=== PATIENT | female | born 1990 | race Caucasian/White ===

== ENCOUNTER 2016-04-24 17:17 | Emergency (ER) | payer OTHER ==
[2016-04-24] MEDS ORDERED: NS 1,000 ML IV ONE ×2 (17:30→18:48)
--- NOTE | 2016-04-24 17:45 | EDPHY ---
H & P Stated Complaint: Diarrhea for 3 wks HPI/ROS: CHIEF COMPLAINT: Diarrhea HISTORY OF PRESENT ILLNESS: reports over 2 weeks duration of diarrhea. This is sudden onset. Constant duration. Up to 20 episodes per day. Occasionally blood tinged. No emesis but some nausea. Some abdominal pain and cramping at times. No fever or chills. This was preceded by a upper respiratory infection, as it usually does. She has no trauma or injury. No constipation. No abdominal surgeries. She reports a history of chronic Lyme disease. She says that she feels that when she gets a virus, she then gets body aches, chills and then diarrhea. No alleviating factors. Exacerbated by intake by mouth. No other associated complaints or modifying factors. PREVIOUS ABDOMINAL SURGERIES/DIAGNOSES: Chronic diarrhea. No surgeries REVIEW OF SYSTEMS: Ten systems reviewed and are negative unless otherwise noted in the HPI EXAMINATION: General Appearance: Alert, no distress Head: normocephalic, atraumatic Eyes: Pupils equal and round, no conjunctival pallor or injection. EOMs intact ENT, Mouth: Mucous membranes moist. Uvula midline.No erythema or edema. Neck: Normal inspection, supple, non-tender. No meningismus Respiratory: Lungs are clear to auscultation. No wheezing, rhonchi, crackles. Cardiovascular: Regular rate and rhythm . No murmur. Pulses intact distally symmetrically Gastrointestinal: Abdomen is soft. Mild tenderness in the lower quadrants. No point tenderness. No CVA tenderness.No rebound, guarding or tympany. Nonacute abdomen. Back: non-tender, no bony abnormalities Neurological: A&O, nonfocal, Strength is 5/5 in all limbs Skin: Warm and dry, no rash. No petechiae or purpura Extremities: Nontender, no pedal edema Psychiatric: Mood and affect normal DIFFERENTIAL DIAGNOSES: Including but not limited to acute diarrhea, viral diarrhea, bacterial diarrhea , chronic diarrhea, dehydration, weakness, viral illness MDM: 5:44 p.m. reports of nearly 2 weeks of diarrhea. The patient has had this in the past and attributes it to a chronic Lyme disease diagnosis she has received in the past. She has no recent antibiotics. No history of C difficile colitis. She does have some mild lower abdominal pain. We will continue to monitor this and provide IV fluid resuscitation while laboratory studies are pending. She is in no acute distress and does not want any pain medication at this time. 7:20 p.m. I have re-evaluated the patient. Labs reveal mild dehydration but no other significant abnormalities. Mild leukocytosis. No hypokalemia. Vital signs have improved with IV fluid resuscitation. Plan for a 2nd L and will send her stool sample for the GI profile should she be able to provide one. 8:40PM notified by RN that the patient now has a fever. We will administer Tylenol. I have re-evaluated the patient. She Is upset and she is unable to provide a stool sample. We discussed at length, the possibility of treating empirically for bacterial infection versus symptomatic care for the possibility of viral infection. She is also is concerned because she has mostly for [place] in the morning. I discussed that we would likely treat her empirically given her trip and that we could provide a prescription for her to provide a stool sample to the outpatient lab should she be able to do so. She is considering her options at this time we will discuss again. 9:20 p.m. patient is still resting comfortably. She is unable to provide a stool sample at this time. She is eating an attempt to elicit this. 10:00 p.m. patient is asking to be discharged home. She has been unable to provide a stool sample. I did offer further observation with antibiotic coverage, GI pathogen panel and possibly admission should it be necessary. I do feel She is stable for discharge home, but I suspect she has a viral diarrhea less likely bacterial. We did offer empiric coverage and send her home with a prescription for stool studies, and she wants to be discharged home at this time. To be discharged home empiric coverage and instructions to return to ER should her symptoms worsen, she have any persistent fever or other abdominal pain develops. She is comfortable with this plan and wants to be discharged home at this time. I did encourage her to return to the ER should she change her mind. ED Precautions: Worsening pain. Fever. Bloody stools. Bloody emesis. Constipation or diarrhea. SUPERVISION: Patient was evaluated in conjunction with the supervising physician. Please see their note for details. Source: Patient Exam Limitations: No limitations - Personal History LMP (Females 10-55): 8-14 Days Ago Current Tetanus/Diphtheria Vaccine: Unsure Current Tetanus Diphtheria and Acellular Pertussis (TDAP): Unsure - Medical/Surgical History Hx Asthma: No Hx Chronic Respiratory Disease: No Hx Diabetes: No Hx Cardiac Disease: No Hx Renal Disease: No Hx Cirrhosis: No Hx Alcoholism: No Hx HIV/AIDS: No Hx Splenectomy or Spleen Trauma: No Other PMH: anxiety depression - Social History Smoking Status: Never smoked Constitutional: Initial Vital Signs Temperature (C) 99.5 F 04/24/16 17:19 Heart Rate 104 H 04/24/16 17:19 Respiratory Rate 16 04/24/16 17:19 Blood Pressure 118/72 04/24/16 17:19 O2 Sat (%) 97 04/24/16 17:19 O2 Delivery Mode Room Air Allergies/Adverse Reactions: No Known Allergies Allergy (Unverified 11/15/13 02:12) Home Medications: Medication Instructions Recorded Ciprofloxacin [Cipro] 500 mg PO BID #14 tab 04/24/16 metroNIDAZOLE [Flagyl 500 mg (*)] 500 mg PO TID #14 tab 04/24/16 Medical Decision Making - Data Points Laboratory Results: Laboratory Results 04/24/16 17:55 04/24/16 17:55 04/24/16 04/24/16 19:10 17:55 WBC 15.62 H 10^3/uL (3.80-9.50) RBC 4.21 10^6/uL (4.18-5.33) Hgb 13.2 g/dL (12.6-16.3) Hct 38.7 % (38.0-47.0) MCV 91.9 fL (81.5-99.8) MCH 31.4 pg (27.9-34.1) MCHC 34.1 g/dL (32.4-36.7) RDW 13.4 % (11.5-15.2) Plt Count 407 H 10^3/uL (150-400) MPV 9.4 fL (8.7-11.7) Neut % (Auto) 83.8 H % (39.3-74.2) Lymph % (Auto) 7.5 L % (15.0-45.0) Morton % (Auto) 7.5 % (4.5-13.0) Eos % (Auto) 0.3 L % (0.6-7.6) Baso % (Auto) 0.6 % (0.3-1.7) Nucleat RBC Rel Count 0.0 % (0.0-0.2) Absolute Neuts (auto) 13.10 H 10^3/uL (1.70-6.50) Absolute Lymphs (auto) 1.17 10^3/uL (1.00-3.00) Absolute Monos (auto) 1.17 H 10^3/uL (0.30-0.80) Absolute Eos (auto) 0.04 10^3/uL (0.03-0.40) Absolute Basos (auto) 0.09 10^3/uL (0.02-0.10) Absolute Nucleated RBC 0.00 10^3/uL (0-0.01) Immature Gran % 0.3 % (0.0-1.1) Immature Gran # 0.05 10^3/uL (0.00-0.10) VBG Lactic Acid 0.8 mmol/L (0.7-2.1) Sodium 138 mEq/L (134-144) Potassium 4.0 mEq/L (3.5-5.2) Chloride 103 mEq/L (97-110) Carbon Dioxide 23 mEq/l (22-31) Anion Gap 12 mEq/L (8-16) BUN 10 mg/dL (7-23) Creatinine 0.5 L mg/dL (0.6-1.0) Estimated GFR > 60 Glucose 105 H mg/dL (70-100) Calcium 8.8 mg/dL (8.5-10.4) Total Bilirubin 0.7 mg/dL (0.1-1.4) Conjugated Bilirubin 0.3 mg/dL (0.0-0.5) Unconjugated Bilirubin 0.4 mg/dL (0.0-1.1) AST 32 IU/L (14-46) ALT 39 IU/L (9-52) Alkaline Phosphatase 100 IU/L (38-126) Total Protein 7.0 g/dL (6.3-8.2) Albumin 3.6 g/dL (3.5-5.0) Lipase 70.0 IU/L (23-300) Beta HCG, Qual NEGATIVE Urine Color YELLOW Urine Appearance HAZY Urine pH 5.0 (5.0-7.5) Ur Specific Foster 1.025 (1.002-1.030) Urine Protein NEGATIVE (NEGATIVE) Urine Ketones 2+ H (NEGATIVE) Urine Blood NEGATIVE (NEGATIVE) Urine Nitrate NEGATIVE (NEGATIVE) Urine Bilirubin NEGATIVE (NEGATIVE) Urine Urobilinogen NEGATIVE EU (0.2-1.0) Ur Leukocyte Esterase NEGATIVE (NEGATIVE) Ur Culture Indicated? NOT INDICATED (NI) Urine Glucose NEGATIVE (NEGATIVE) Influenza Typ A,B (DFA) NEGATIVE FOR FLU (NEGATIVE) Medications Given: Discontinued Medications Sodium Chloride (Ns) 1,000 mls @ 0 mls/hr IV ONCE ONE PRN Reason: Wide Open Stop: 04/24/16 17:31 Last Admin: 04/24/16 18:10 Dose: 1,000 mls Sodium Chloride (Ns) 1,000 mls @ 0 mls/hr IV ONCE ONE PRN Reason: Wide Open Stop: 04/24/16 18:49 Last Admin: 04/24/16 19:59 Dose: 1,000 mls Departure - Departure Disposition: Home, Routine, Self-Care Clinical Impression: Abdominal pain Qualifiers: Qualifier Code: (R10.9) Unspecified abdominal pain Diarrhea Qualifiers: Qualifier Code: (R19.7) Diarrhea, unspecified Condition: Good Instructions: Dehydration (ED), Acute Diarrhea (ED) Additional Instructions: Follow-up with primary care physician. Return to the ER for worsening pain, bloody stools, fever or inability to keep liquids down by mouth Referrals: Mary Feldman PA [Primary Care Provider] - As per Instructions Stand Alone Forms: Prescriptions: Ciprofloxacin [Cipro] 500 mg PO BID #14 tab metroNIDAZOLE [Flagyl 500 mg (*)] 500 mg PO TID #14 tab
[2016-04-24 18:18] LABS: % IMMATURE GRANULYOCYTES 0.3 % (0.0-1.1); ABSOLUTE IMMATURE GRANULOCYTES 0.05 10^3/uL (0.00-0.10); ADD DIFF? NO; ADD MORPH? NO; ADD SCAN? NO; ATYPICAL LYMPHOCYTE FLAG 50 (0-99); FRAGMENT RBC FLAG 10 (0-99); HEMATOCRIT 38.7 % (38.0-47.0); HEMOGLOBIN 13.2 g/dL (12.6-16.3); LEFT SHIFT FLG 40 (0-99); LIPEMIA HEMOLYSIS FLAG 90 (0-99); MEAN CELL HEMOGLOBIN 31.4 pg (27.9-34.1); MEAN CELL HEMOGLOBIN CONCENTR. 34.1 g/dL (32.4-36.7); MEAN CELL VOLUME 91.9 fL (81.5-99.8); MEAN PLATELET VOLUME 9.4 fL (8.7-11.7); PLATELET CLUMPS FLAG 10 (0-99); PLATELET COUNT 407 10^3/uL (150-400); RED BLOOD CELL COUNT 4.21 10^6/uL (4.18-5.33); RED CELL DISTRIBUTION WIDTH 13.4 % (11.5-15.2)
[2016-04-24 18:33] LABS: ALANINE AMINOTRANSFERASE 39 IU/L (9-52); ALBUMIN 3.6 g/dL (3.5-5.0); ALKALINE PHOSPHATASE 100 IU/L (38-126); ANION GAP 12 mEq/L (8-16); ASPARTATE AMINOTRANSFERASE 32 IU/L (14-46); BILIRUBIN,TOTAL 0.7 mg/dL (0.1-1.4); BILIRUBIN-CONJUGATED 0.3 mg/dL (0.0-0.5); BILIRUBIN-UNCONJUGATED 0.4 mg/dL (0.0-1.1); CALCIUM 8.8 mg/dL (8.5-10.4); CARBON DIOXIDE 23 mEq/l (22-31); CHLORIDE 103 mEq/L (97-110); CREATININE 0.5 mg/dL (0.6-1.0); GLOMERULAR FILTRATION RATE > 60; GLUCOSE 105 mg/dL (70-100); SODIUM 138 mEq/L (134-144)
[2016-04-24 19:29] LABS: COLOR YELLOW; LEUKOCYTE ESTERASE,URINE NEGATIVE (NEGATIVE); NITRITE,URINE NEGATIVE (NEGATIVE)
[2016-04-24 20:34] VITALS: PULSE 104; RESP 16
[2016-04-24] MEDS ORDERED: ACETAMINOPHEN 325 MG TAB PO ONE (20:41)
[2016-04-24] MEDS ORDERED: metroNIDAZOLE 500 MG TAB PO ONE (22:03)
[2016-04-24] MEDS ORDERED: CIPROFLOXACIN 500MG PREPACK#2 BTL TAKEHOME ONE (22:03)
[2016-04-24 22:15] VITALS: BP 108/65; TEMP 98.6; O2SAT 96
== END 2016-04-24 22:24 | disposition home or self-care (01) ==
DX: R19.7 Diarrhea, unspecified (principal); R10.31 Right lower quadrant pain; R10.32 Left lower quadrant pain

== ENCOUNTER 2016-04-30 18:19 | Emergency (ER) | payer OTHER ==
[2016-04-30] MEDS ORDERED: ONDANSETRON 4 MG/2 ML VIAL IVP ONE (20:56)
[2016-04-30] MEDS ORDERED: NS 1,000 ML IV ONE ×2 (20:56→22:24)
[2016-04-30] MEDS ORDERED: HYDROmorphONE/DILAUDID 1 MG/ML SYR IVP ONE (20:56)
[2016-04-30 21:21] LABS: ANION GAP 17 mEq/L (8-16); CALCIUM 9.4 mg/dL (8.5-10.4); CARBON DIOXIDE 24 mEq/l (22-31); CHLORIDE 95 mEq/L (97-110); CREATININE 0.5 mg/dL (0.6-1.0); GLOMERULAR FILTRATION RATE > 60; GLUCOSE 127 mg/dL (70-100); SODIUM 136 mEq/L (134-144)
[2016-04-30 22:29] VITALS: RESP 16
--- NOTE | 2016-04-30 22:45 | EDPHY ---
H & P Time Seen by Provider: 04/30/16 20:55 HPI/ROS: HPI Diarrhea. 25-year-old female by private vehicle. This patient has a history of intermittent chronic diarrhea thought to be secondary to an auto immune disorder associated with chronic lines disease. She was seen in our emergency department on April 24 with complaint of diarrhea ongoing for 2 weeks. Prior to that she reports she had an upper respiratory infection which then she states flared her Lyme disease and then she developed her typical diarrhea. She reports however that her diarrhea last several days to 1 week and then resolves. She reports this time it has been ongoing which is different from her previous episodes. Her stool studies/GI panel from her previous visit to the emergency department on April 24 did not detect any organisms. She was actually prescribed ciprofloxacin as well as metronidazole all to be taken pending positive stool studies. She states that she never filled these prescriptions because of negative results. She describes having associated mid and lower crampy abdominal discomfort. She reports that she has had a decreased appetite and nausea. She reports she had 1 episode of vomiting yesterday after she ate. She reports that she has been able to eat some food today but she feels that she has gotten dehydrated secondary to her multiple episodes of diarrhea. ROS: Constitutional: No fever, no chills. No weakness. Eyes: No discharge. No changes in vision. ENT: No sore throat. No nasal congestion or rhinorrhea. Respiratory: No cough. No shortness of breath. Cardiac: No chest pain, no palpitations. Gastrointestinal: No abdominal pain, no vomiting, no diarrhea. Genitourinary: No hematuria. No dysuria or increased frequency with urination. Musculoskeletal: No back pain. No neck pain. No myalgias or arthralgias. Skin: No rashes. Neurological: No headache. No focal weakness or altered sensation. Past medical history: Is as above. Anxiety, depression. Social history: Lives with a roommate. Nonsmoker. Denies alcohol. Physical Exam: General Appearance: Alert, appears uncomfortable. This patient is responding to questions appropriately and in full sentences. This patient appears generally well-hydrated and well-nourished. Eyes: Pupils equal and round she has bilateral upper and lower lid inflammation and edema with some scant purulent discharge from the lateral canthus. The cornea appear clear. No significant scleral inflammation No lid edema, erythema or injection. Respiratory: There are no retractions, lungs are clear to auscultation with good air movement bilaterally. Cardiovascular: Regular rate and rhythm. No murmur. Gastrointestinal: Abdomen is soft with vague and mild tenderness throughout, no masses, bowel sounds active. No focal tenderness at McBurney's point. No Machado sign. Neurological: Motor sensory function is grossly intact. Cranial nerves are normal. Gait is normal. Skin: Warm and dry, no rashes. Musculoskeletal: Neck is supple and nontender. Extremities are symmetrical. All joints range without pain or impingement. Psychiatric: No agitation. No depression. Database: EKG: Imaging: Procedures: Emergency department course: IV placed. She was placed on a second officer. Vital signs have been reviewed. She is mildly tachycardic and borderline febrile. She was started on IV normal saline with 2 L to be given over the next 1-2 hours. She was initially given 0.25 mg of IV hydromorphone for her abdominal cramping and to slow her diarrhea. She was given 4 mg of IV Zofran. She was started on Polytrim drops for bilateral conjunctivitis. Her previous medical history and results of stool studies were reviewed from April 24. 11:40 p.m., patient sitting upright, talking to her boyfriend was not present in the room. I discussed admission with her for IV hydration and evaluation by hospitalist service. She does not want to do this. She is tolerating oral fluids in the emergency department. She does feel comfortable going home. Her repeat abdominal exam she is soft and nontender on palpation at this time. I discussed gastroenterology follow-up. I also explained that her diarrhea as a likely autoimmune cost. I discussed follow-up with a multimedia instructional designer as well. I will prescribe her a short course of Vicodin for her abdominal cramping and to slow her diarrhea. She reports that this has worked well for her in the past. Her conjunctivitis will be treated with Polytrim as above. Return to emergency department precautions were thoroughly reviewed with her. All of her questions were answered. She was discharged in good condition with her boyfriend. Differential Diagnosis: The differential diagnosis on this patient includes but is not limited to inflammatory bowel disorder, viral versus bacterial enteritis, dehydration. This represents a partial list of diagnoses considered. These considerations are based on history, physical exam, past history, reassessment and diagnostic testing. Smoking Status: Never smoked Constitutional: Initial Vital Signs Temperature (C) 37.2 C 04/30/16 18:40 Heart Rate 101 H 04/30/16 18:40 Respiratory Rate 18 04/30/16 18:40 Blood Pressure 110/72 04/30/16 18:40 O2 Sat (%) 94 04/30/16 18:40 O2 Delivery Mode Room Air Allergies/Adverse Reactions: No Known Allergies Allergy (Verified 04/30/16 18:53) Home Medications: Medication Instructions Recorded Ondansetron Odt [Zofran Odt 4 mg 4 mg PO Q4PRN PRN #10 tab 04/30/16 (*)] Sertraline HCl [Zoloft 25mg (*)] 25 mg PO DAILY 04/30/16 Medical Decision Making - Data Points Laboratory Results: Laboratory Results 04/30/16 21:00 Medications Given: Discontinued Medications Acetaminophen/Hydrocodone Bitart (Bisbee 5/325mg Prepack#6) 1 btl TAKEHOME EDNOW ONE Stop: 04/30/16 23:50 Last Admin: 05/01/16 00:18 Dose: 1 btl Hydromorphone HCl (Dilaudid) 0.25 mg IVP EDNOW ONE Stop: 04/30/16 20:57 Last Admin: 04/30/16 21:00 Dose: 0.25 mg Sodium Chloride (Ns) 1,000 mls @ 0 mls/hr IV ONCE ONE PRN Reason: Wide Open Stop: 04/30/16 20:57 Last Admin: 04/30/16 21:00 Dose: 1,000 mls Sodium Chloride (Ns) 1,000 mls @ 0 mls/hr IV ONCE ONE PRN Reason: Wide Open Stop: 04/30/16 22:25 Last Admin: 04/30/16 22:28 Dose: 1,000 mls Ondansetron HCl (Zofran) 4 mg IVP EDNOW ONE Stop: 04/30/16 20:57 Last Admin: 04/30/16 21:00 Dose: 4 mg Ondansetron HCl (Zofran Odt 4 Mg Prepack#2) 1 btl TAKEHOME EDNOW ONE Stop: 04/30/16 23:50 Last Admin: 05/01/16 00:18 Dose: 1 btl Polymyxin/Trimethoprim Sulfate (Polytrim Opht Drops) 1 drops EACHEYE Q6HRS PO Stop: 05/31/16 00:00 Last Admin: 04/30/16 23:23 Dose: 1 drop Departure - Departure Disposition: Home, Routine, Self-Care Clinical Impression: Diarrhea, Conjunctivitis Condition: Good Instructions: Hydrocodone/Acetaminophen (By mouth), Ondansetron (By mouth), Chronic Diarrhea (ED), Conjunctivitis (ED) Additional Instructions: Read and follow provided instructions. Bisbee/Percocet dosin-2 every 4-6 hours for Diarrhea and abdominal cramping. Do not drive on this medication. Polytrim eyedrops dosin drop each eye every 3 hours while awake for 5-7 days. Follow-up with Gastroenterology, Dr. Mekhi Elkins, or 1 of his partners at [facility] for further evaluation as discussed. I will also provide you with a referral to a multimedia instructional designer. Return to the emergency department for worsening abdominal pain, fever, bloody diarrhea, vomiting and inability to keep fluids down despite medications or other serious concerns. Referrals: Mekhi Elkins MD, FACG [Medical Doctor] - As per Instructions Daniele Garsia MD [Medical Doctor] - As per Instructions Prescriptions: Ondansetron Odt [Zofran Odt 4 mg (*)] 4 mg PO Q4PRN PRN #10 tab PRN Reason: For Nausea & Vomiting
[2016-04-30] MEDS ORDERED: ONDANSETRON 4MG PREPACK#2 BTL TAKEHOME ONE (23:49)
[2016-04-30] MEDS ORDERED: HYDROCOD/APAP 5/325 PREPACK#6 BTL TAKEHOME ONE (23:49)
[2016-05-01] MEDS ORDERED: POLYMYXIN B SULFATE/TMP 10 ML OPHT.BTL EACHEYE SCH
[2016-05-01 00:20] VITALS: BP 107/61; PULSE 88; TEMP 98.1; O2SAT 97
== END 2016-05-01 00:17 | disposition home or self-care (01) ==
DX: R19.7 Diarrhea, unspecified (principal); H10.9 Unspecified conjunctivitis
CPT/HCPCS: 96374; J1170; J2405

== ENCOUNTER 2016-05-07 09:01 | Emergency (ER) | payer OTHER ==
[2016-05-07 09:06] VITALS: RESP 16; O2SAT 94
[2016-05-07] MEDS ORDERED: NS 1,000 ML IV ONE (09:41)
--- NOTE | 2016-05-07 09:44 | EDPHY ---
H & P Smoking Status: Never smoked Time Seen by Provider: 05/07/16 09:19 HPI/ROS: CHIEF COMPLAINT: Diarrhea, weakness HISTORY OF PRESENT ILLNESS: 25-year-old female presents to the emergency department by private vehicle complaining of multiple episodes of watery diarrhea. The patient has also noted blood in her stool intermittently over the last 3 weeks. She feels very weak and dehydrated. The patient has mild abdominal cramping. She feels nauseous although no vomiting. No fevers or chills. She was diagnosed with ulcerative colitis 7 years ago and was started on medication that she took for 1 month. She stop this medication because she did not tolerate it. She also at that time was treated by a homeopathic provider for Lyme disease and feels that she has not had any problems with ulcerative colitis since that treatment. She has not taken any medication for ulcerative colitis until recently went to see [facility] yesterday and was started on a mesalamine yesterday. She took yesterday's dose however she did not take today's. She does not feel that she has infectious diarrhea. She feels that this is likely a flare-up of her ulcerative colitis. She is concerned because she feels very dehydrated and weak. She denies chest pain or difficulty breathing. Denies urinary symptoms. Last menstrual period was 1 month ago and she denies . REVIEW OF SYSTEMS: Constitutional: No fever, no chills. Eyes: No double or blurry vision. ENT: No sore throat. Respiratory: No cough, no shortness of breath. Cardiac: No chest pain. Gastrointestinal: As above. Genitourinary: No dysuria. Musculoskeletal: No neck or back pain. Skin: No rashes. Neurological: No headache. (Azul Diallo) Past Medical/Surgical History: Ulcerative colitis diagnosed 7 years ago (Azul Diallo) Social History: Single (Azul Diallo) Physical Exam: General Appearance: Alert, no distress. Temperature 36.6. Eyes: Pupils equal and round. Extraocular motions are all intact. ENT: Mouth: Mucous membranes moist. Respiratory: No wheezing, rhonchi, or rales, lungs are clear to auscultation. Cardiovascular: Regular rate and rhythm. Gastrointestinal: Abdomen is soft and nontender, no masses, no rebound or guarding, bowel sounds normal. No CVA tenderness bilaterally. Neurological: Alert and oriented x 3, cranial nerves II through XII grossly intact Skin: Warm and dry, no rashes. Musculoskeletal: Nontender to palpate along the cervical, thoracic or lumbar spine. Neck is supple. Extremities: Full range of motion and no peripheral edema. Psychiatric: Patient is oriented X 3, there is no agitation. (Azul Diallo) Constitutional: Initial Vital Signs Temperature (C) 36.6 C 05/07/16 09:02 Heart Rate 96 05/07/16 09:02 Respiratory Rate 16 05/07/16 09:02 Blood Pressure 102/67 05/07/16 09:02 O2 Sat (%) 94 05/07/16 09:02 O2 Delivery Mode Room Air Allergies/Adverse Reactions: No Known Allergies Allergy (Verified 04/30/16 18:53) Home Medications: Medication Instructions Recorded Sertraline HCl [Zoloft 25mg (*)] 25 mg PO DAILY 04/30/16 predniSONE 20 mg PO DAILY #10 tab 05/07/16 Medical Decision Making ED Course/Re-evaluation: 25-year-old female presents to the emergency department with continued bloody diarrhea. Patient was seen by GI yesterday was started on mesalamine. The patient did not take her medication today. Laboratory studies revealed normal CBC and chemistries. She received IV normal saline as well as Dilaudid IV for pain. The patient was observed for over 4 hours in the emergency department and was unable to produce a stool specimen. I spoke with Dr. Sarabjit Sanders with GI who recommended that the patient receive 125 mg of IV Solu-Medrol here and then be sent home with 20 mg prednisone tablet daily and they will see her in follow-up in schedule colonoscopy. The patient verbalized understanding of this and agreed. The father was at bedside was comfortable with this plan. The patient felt comfortable being discharged home. She was given orders for stool culture and will bring the stool specimen back to the hospital as soon as possible. With the patient was here April 24, 2016 with similar bloody diarrhea, her stool culture at that time was negative. She did not take the prescribed Flagyl and Cipro as prescribed. I do not think CT imaging of the abdomen pelvis is necessary. The patient's abdomen is benign. (Azlu Diallo) Differential Diagnosis: Including but not limited to ulcerative colitis, infectious diarrhea, bowel obstruction, acute appendicitis, GI bleed (Azul Diallo) - Data Points Laboratory Results: Laboratory Results 05/07/16 09:18 05/07/16 09:18 05/07/16 09:18 WBC 10.22 H 10^3/uL (3.80-9.50) RBC 4.73 10^6/uL (4.18-5.33) Hgb 14.3 g/dL (12.6-16.3) Hct 43.1 % (38.0-47.0) MCV 91.1 fL (81.5-99.8) MCH 30.2 pg (27.9-34.1) MCHC 33.2 g/dL (32.4-36.7) RDW 13.4 % (11.5-15.2) Plt Count 721 H 10^3/uL (150-400) MPV 8.8 fL (8.7-11.7) Neut % (Auto) 77.5 H % (39.3-74.2) Lymph % (Auto) 12.9 L % (15.0-45.0) Caldwell % (Auto) 5.8 % (4.5-13.0) Eos % (Auto) 2.9 % (0.6-7.6) Baso % (Auto) 0.3 % (0.3-1.7) Nucleat RBC Rel Count 0.0 % (0.0-0.2) Absolute Neuts (auto) 7.92 H 10^3/uL (1.70-6.50) Absolute Lymphs (auto) 1.32 10^3/uL (1.00-3.00) Absolute Monos (auto) 0.59 10^3/uL (0.30-0.80) Absolute Eos (auto) 0.30 10^3/uL (0.03-0.40) Absolute Basos (auto) 0.03 10^3/uL (0.02-0.10) Absolute Nucleated RBC 0.00 10^3/uL (0-0.01) Immature Gran % 0.6 % (0.0-1.1) Immature Gran # 0.06 10^3/uL (0.00-0.10) Sodium 142 mEq/L (134-144) Potassium 4.3 mEq/L (3.5-5.2) Chloride 102 mEq/L (97-110) Carbon Dioxide 24 mEq/l (22-31) Anion Gap 16 mEq/L (8-16) BUN 5 L mg/dL (7-23) Creatinine 0.5 L mg/dL (0.6-1.0) Estimated GFR > 60 Glucose 93 mg/dL (70-100) Calcium 9.4 mg/dL (8.5-10.4) Medications Given: Discontinued Medications Hydromorphone HCl (Dilaudid) 0.5 mg IVP EDNOW ONE Stop: 05/07/16 10:11 Last Admin: 05/07/16 10:17 Dose: 0.5 mg Sodium Chloride (Ns) 1,000 mls @ 0 mls/hr IV ONCE ONE PRN Reason: Wide Open Stop: 05/07/16 09:42 Last Admin: 05/07/16 09:43 Dose: 1,000 mls Methylprednisolone Sodium Succinate (Solu-Medrol) 125 mg IVP EDNOW ONE Stop: 05/07/16 12:45 Last Admin: 05/07/16 12:45 Dose: 125 mg Ondansetron HCl (Zofran) 4 mg IVP EDNOW ONE Stop: 05/07/16 10:46 Last Admin: 05/07/16 10:45 Dose: 4 mg Departure - Departure Disposition: Home, Routine, Self-Care Clinical Impression: Bloody diarrhea, History of ulcerative colitis Fatigue Qualifiers: Fatigue type: unspecified Qualifier Code: (R53.83) Other fatigue Condition: Good Instructions: Chronic Diarrhea (ED), Ulcerative Colitis (ED), Fatigue (ED) Additional Instructions: Continue mesalamine as prescribed. Prednisone 20 mg daily. Your given 125 mg of Solu-Medrol IV in the emergency department. Call Dr. Sarabjit Sanders office tomorrow to arrange follow-up appointment scheduled colonoscopy. Return to the emergency department if you develop fever, worsening abdominal pain, increasing bloody diarrhea, or if you feel worse in any way. Your platelet count today in the emergency department was high, 721. You should follow up with primary care provider to have this rechecked. Referrals: rAeli Bob MD [Medical Doctor] - As per Instructions (Primary care provider at [facility]) Sarabjit Sanders MD [Medical Doctor] - As per Instructions (Call in the morning to arrange follow-up appointment and schedule colonoscopy. Tell them we spoke with Dr. Sanders while you were here in the emergency department.) Prescriptions: predniSONE 20 mg PO DAILY #10 tab
[2016-05-07 09:51] LABS: % IMMATURE GRANULYOCYTES 0.6 % (0.0-1.1); ABSOLUTE IMMATURE GRANULOCYTES 0.06 10^3/uL (0.00-0.10); ADD DIFF? NO; ADD MORPH? NO; ADD SCAN? NO; ATYPICAL LYMPHOCYTE FLAG 80 (0-99); FRAGMENT RBC FLAG 0 (0-99); HEMATOCRIT 43.1 % (38.0-47.0); HEMOGLOBIN 14.3 g/dL (12.6-16.3); LEFT SHIFT FLG 20 (0-99); LIPEMIA HEMOLYSIS FLAG 80 (0-99); MEAN CELL HEMOGLOBIN 30.2 pg (27.9-34.1); MEAN CELL HEMOGLOBIN CONCENTR. 33.2 g/dL (32.4-36.7); MEAN CELL VOLUME 91.1 fL (81.5-99.8); MEAN PLATELET VOLUME 8.8 fL (8.7-11.7); PLATELET CLUMPS FLAG 10 (0-99); PLATELET COUNT 721 10^3/uL (150-400); RED BLOOD CELL COUNT 4.73 10^6/uL (4.18-5.33); RED CELL DISTRIBUTION WIDTH 13.4 % (11.5-15.2)
[2016-05-07 10:02] LABS: ANION GAP 16 mEq/L (8-16); CALCIUM 9.4 mg/dL (8.5-10.4); CARBON DIOXIDE 24 mEq/l (22-31); CHLORIDE 102 mEq/L (97-110); CREATININE 0.5 mg/dL (0.6-1.0); GLOMERULAR FILTRATION RATE > 60; GLUCOSE 93 mg/dL (70-100); POTASSIUM 4.3 mEq/L (3.5-5.2); SODIUM 142 mEq/L (134-144)
[2016-05-07] MEDS ORDERED: HYDROmorphONE/DILAUDID 1 MG/ML SYR ONE (10:05)
[2016-05-07] MEDS ORDERED: HYDROmorphONE/DILAUDID 1 MG/ML SYR IVP ONE (10:10)
[2016-05-07] MEDS ORDERED: ONDANSETRON 4 MG/2 ML VIAL IVP ONE (10:45)
[2016-05-07] MEDS ORDERED: ONDANSETRON 4 MG/2 ML VIAL ONE (10:51)
[2016-05-07] MEDS ORDERED: methylPREDNISolone SOD SUCC 125 MG/2 ML VIAL ONE (12:44)
[2016-05-07] MEDS ORDERED: methylPREDNISolone SOD SUCC 125 MG/2 ML VIAL IVP ONE (12:44)
[2016-05-07 13:26] VITALS: BP 101/67; PULSE 84; TEMP 98.1
== END 2016-05-07 13:25 | disposition home or self-care (01) ==
DX: R19.7 Diarrhea, unspecified (principal)
CPT/HCPCS: 96374; J1170; J2405

== ENCOUNTER 2018-07-10 17:38 | Emergency (ER) | payer OTHER ==
--- NOTE | 2018-07-10 17:48 | EDPHY ---
H & P Stated Complaint: dx ulcerative colitis thursday, dr wants her to have iv prednisone Time Seen by Provider: 07/10/18 17:48 HPI/ROS: HPI CHIEF COMPLAINT: "I want prednisone for my colitis" HISTORY OF PRESENT ILLNESS: Patient is a 27-year-old female, she presents to the emergency room stating that she has colitis, she reports to me that she was diagnosed approximately 3-4 years ago with ulcerative colitis. She just recently had a colonoscopy by Mekhi Vasquez, on Thursday. Diagnosed with colitis. Started on prednisone recommended 60 mg or 30 mg twice daily however the patient has only been taking 30 mg. She presents emergency room requesting she gets an IV dose of steroids. Initially she requested only an IV dose of steroids and no blood work. However she has agreed on blood work, IV Solu-Medrol. She states her symptoms have improved since being on prednisone with less pain, no bloody stools, no vomiting and no fever. Prior to her colonoscopy on Thursday she had nausea vomiting fever. Now improving. According to the colonoscopy report was recommend that she be hospitalized due to colitis and go to the hospital however she declined this. Instead they placed her on prednisone 30 mg twice daily. However the patient has only been taking 30 mg once daily. CRP was 61 at colonoscopy. Past Medical History: Colitis. Patient reports ulcerative colitis Past Surgical History: No recent surgery Social History: Denies drugs alcohol tobacco Family History: Noncontributory ROS REVIEW OF SYSTEMS: 10 Systems were reviewed and negative with the exception of the elements mentioned in the history of present illness. Exam Constitutional triage nursing summary reviewed, vital signs reviewed, awake/ alert. Eyes normal conjunctivae and sclera, EOMI, PERRLA. HENT normal inspection, atraumatic, moist mucus membranes, no epistaxis, neck supple/ no meningismus, no raccoon eyes. Respiratory clear to auscultation bilaterally, normal breath sounds, no respiratory distress, no wheezing. Cardiovascular rate normal, regular rhythm, no murmur, no edema, distal pulses normal. Gastrointestinal soft, non-tender, no rebound, no guarding, normal bowel sounds, no distension, no pulsatile mass. Genitourinary no CVA tenderness. Musculoskeletal no midline vertebral tenderness, full range of motion, no calf swelling, no tenderness of extremities, no meningismus, good pulses, neurovascularly intact. Skin pink, warm, & dry, no rash, skin atraumatic. Neurologic awake, alert and oriented x 3, AAOx3, moves all 4 extremities equally, motor intact, sensory intact, CN II-XII intact, normal cerebellar, normal vision, normal speech. Psychiatric normal mood/affect. Heme/Lymph/Immune no lymphadenopathy. Differential Diagnosis: Differential diagnosis includes but is not limited to and in no particular order: Worsening colitis, Bowel obstruction, appendicitis , gallbladder disease, diverticulitis, enteritis, perforated viscus, gastritis, GERD, esophagitis, urinary tract infection, pyelonephritis, kidney stones Medical Decision Making: Plan for this patient IV establishment IV fluid bolus , IV Solu-Medrol, basic labs, re-evaluate Re-evaluation: 1950: Patient re-evaluated resting comfortably here in no acute distress. Abdomen is soft nontender. The patient is not vomiting. Labs reviewed. Stable from outpatient GI labs. Her CRP is in fact down. She has no fever here, vital signs stable, no bloody diarrhea. She would like to go home. She received IV fluids here, IV Solu-Medrol. I do recommend she follows the GI instructions of Dr. Elkins. Prednisone 30 mg twice daily as a taper. We discussed return precautions return emergency room if worsening abdominal pain, bloody stool, fever, vomiting. Source: Patient - Personal History LMP (Females 10-55): 8-14 Days Ago Current Tetanus/Diphtheria Vaccine: Unsure Current Tetanus Diphtheria and Acellular Pertussis (TDAP): Unsure - Medical/Surgical History Hx Asthma: No Hx Chronic Respiratory Disease: No Hx Diabetes: No Hx Cardiac Disease: No Hx Renal Disease: No Hx Cirrhosis: No Hx Alcoholism: No Hx HIV/AIDS: No Hx Splenectomy or Spleen Trauma: No Other PMH: anxiety depression, ulcerative colitis - Social History Smoking Status: Former smoker Constitutional: Initial Vital Signs Temperature (C) 36.6 C 07/10/18 17:44 Heart Rate 73 07/10/18 17:44 Respiratory Rate 16 07/10/18 17:44 Blood Pressure 109/68 07/10/18 17:44 O2 Sat (%) 95 07/10/18 17:44 O2 Delivery Mode Room Air Allergies/Adverse Reactions: No Known Allergies Allergy (Verified 07/10/18 17:47) Home Medications: Medication Instructions Recorded Sertraline HCl [Zoloft 25mg (*)] 25 mg PO DAILY 04/30/16 predniSONE 20 mg PO DAILY #10 tab 05/07/16 Zofran 07/10/18 Medical Decision Making - Data Points Laboratory Results: Laboratory Results 07/10/18 18:20 07/10/18 18:20 07/10/18 07/10/18 18:20 18:20 WBC 5.49 10^3/uL 10^3/uL (3.80-9.50) RBC 4.00 10^6/uL L 10^6/uL (4.18-5.33) Hgb 10.2 g/dL L g/dL (12.6-16.3) Hct 32.1 % L % (38.0-47.0) MCV 80.3 fL L fL (81.5-99.8) MCH 25.5 pg L pg (27.9-34.1) MCHC 31.8 g/dL L g/dL (32.4-36.7) RDW 14.6 % % (11.5-15.2) Plt Count 654 10^3/uL H 10^3/uL (150-400) MPV 8.2 fL L fL (8.7-11.7) Neut % (Auto) 72.3 % % (39.3-74.2) Lymph % (Auto) 16.4 % % (15.0-45.0) Clay % (Auto) 9.1 % % (4.5-13.0) Eos % (Auto) 0.0 % L % (0.6-7.6) Baso % (Auto) 0.2 % L % (0.3-1.7) Nucleat RBC Rel Count 0.0 % % (0.0-0.2) Absolute Neuts (auto) 3.97 10^3/uL 10^3/uL (1.70-6.50) Absolute Lymphs (auto) 0.90 10^3/uL L 10^3/uL (1.00-3.00) Absolute Monos (auto) 0.50 10^3/uL 10^3/uL (0.30-0.80) Absolute Eos (auto) 0.00 10^3/uL L 10^3/uL (0.03-0.40) Absolute Basos (auto) 0.01 10^3/uL L 10^3/uL (0.02-0.10) Absolute Nucleated RBC 0.00 10^3/uL 10^3/uL (0-0.01) Immature Gran % 2.0 % H % (0.0-1.1) Immature Gran # 0.11 10^3/uL H 10^3/uL (0.00-0.10) ESR 27 MM/HR H MM/HR (0-20) Sodium 138 mEq/L mEq/L (135-145) Potassium 4.3 mEq/L mEq/L (3.5-5.2) Chloride 105 mEq/L mEq/L (97-110) Carbon Dioxide 25 mEq/l mEq/l (22-31) Anion Gap 8 mEq/L mEq/L (6-14) BUN 11 mg/dL mg/dL (7-23) Creatinine 0.5 mg/dL L mg/dL (0.6-1.0) Estimated GFR > 60 Glucose 112 mg/dL H mg/dL (70-100) Calcium 8.7 mg/dL mg/dL (8.5-10.4) C-Reactive Protein 35.0 mg/L H mg/L (<10.0) Medications Given: Discontinued Medications Sodium Chloride (Ns) 1,000 mls @ 0 mls/hr IV EDNOW ONE; Wide Open PRN Reason: Protocol Stop: 07/10/18 18:09 Last Admin: 07/10/18 18:19 Dose: 1,000 mls Methylprednisolone Sodium Succinate (Solu-Medrol) 125 mg IVP EDNOW ONE Stop: 07/10/18 18:10 Last Admin: 07/10/18 18:23 Dose: 125 mg Departure - Departure Disposition: Home, Routine, Self-Care Clinical Impression: Colitis Condition: Good Instructions: Colitis (ED) Additional Instructions: 1. Stay well-hydrated drink lots of fluids. 2. Prednisone as recommended 3. Return to the emergency room if develops worsening abdominal pain, fever, vomiting Referrals: Areli Bob MD [Primary Care Provider] - As per Instructions Mekhi Elkins MD, FACG [Medical Doctor] - As per Instructions
[2018-07-10] MEDS ORDERED: NS 1,000 ML IV ONE (18:08)
[2018-07-10] MEDS ORDERED: methylPREDNISolone SOD SUCC 125 MG/2 ML VIAL IVP ONE (18:09)
[2018-07-10 18:35] LABS: PLATELET COUNT 654 10^3/uL (150-400)
[2018-07-10 19:55] VITALS: BP 109/75
== END 2018-07-10 19:55 | disposition home or self-care (01) ==
DX: K52.9 Noninfective gastroenteritis and colitis, unspecified (principal); E86.9 Volume depletion, unspecified
CPT/HCPCS: 96374; J2930